=== PATIENT | male | born 1975 | race Two or more races ===

== ENCOUNTER 2019-06-24 14:36 | Inpatient (IN) | payer SELFPAY ==
[~2019-06-24] VITALS: Ht 170.2 cm; Wt 108.4 kg
[2019-06-24] MEDS ORDERED: SODIUM CHLORIDE 0.9% 1,000 ML IVB ONE (14:55)
[2019-06-24 15:17] LABS: Basophils # (auto) 0.1 10 ^3/uL (0-0.2); Basophils % (auto) 0.8 % (0.0-2.0); Eosinophils # (auto) 0.4 10 ^3/uL (0-0.8); Eosinophils % (auto) 2.8 % (0.0-7.0); Hematocrit 47.9 % (41.0-53.0); Hemoglobin 15.5 g/dL (13.5-17.5); Lymphocytes # (auto) 2.8 10 ^3/uL (0.4-5.4); Lymphocytes % (auto) 20.5 % (10.0-50.0); Mean Corpuscular Hgb Conc. 32.3 g/dL (32.0-36.0); Mean Corpuscular Volume 89.8 fL (80.0-100.0); Monocytes # (auto) 1.3 10 ^3/uL (0-1.3); Monocytes % (auto) 9.4 % (0.0-12.0); Neutrophils # (auto) 9.3 10 ^3/uL (1.6-8.6); Neutrophils % (auto) 66.5 % (37.0-80.0); Nucleated Red Blood Cells % 0.2 %; Platelet Count (auto) 323 10^3/uL (140-450); Red Blood Cells 5.33 10^6/uL (4.5-5.90); Red Cell Distribution Width 13.7 % (11.8-14.3); White Blood Cell 13.9 10^3/uL (4.4-10.8)
[2019-06-24 15:36] LABS: Urine Bacteria NONE SEEN /hpf (None Seen); Urine Blood Negative /uL (Negative); Urine Hyaline Cast FEW /lpf (0 - 2); Urine Mucus FEW (None Seen); Urine Specific Gravity 1.014 (1.001-1.035); Urine WBC 1 /hpf (0 - 3)
[2019-06-24 15:37] LABS: Albumin 3.5 g/dL (3.4-5.0); Anion Gap 6 (5-15); Blood Urea Nitrogen 13 mg/dL (7-18); Calcium 8.4 mg/dL (8.5-10.1); Carbon Dioxide 25 mmol/L (21-32); Chloride 104 mmol/L (98-107); Glucose 201 mg/dL (74-106); Potassium 3.7 mmol/L (3.5-5.1); Salicylate 2.1 mg/dL (2.8-20.0); Sodium 135 mmol/L (136-145)
[2019-06-24 15:40] LABS: Alcohol, Urine < 3.0 mg/dL (0-5); Amphetamine Screen, Urine NEGATIVE (NEGATIVE); Barbiturate Scree,Urine NEGATIVE (NEGATIVE); Benzodiazephine Screen, Urine NEGATIVE (NEGATIVE); Cannabinoid Screen, Urine NEGATIVE (NEGATIVE); Cocaine Screen, Urine NEGATIVE (NEGATIVE); Opiate Scree,Urine POSITIVE (NEGATIVE); Phencyclidine Screen, Urine NEGATIVE (NEGATIVE)
[2019-06-24 15:40] LABS: Alanine Aminotransferase 45 U/L (16-61); Aspartate Aminotransferase 41 U/L (15-37); Blood Alcohol < 3.0 mg/dL (0-5); GFR African American 89 mL/min; GFR Non-African American 74 mL/min
[2019-06-24 15:41] LABS: Acetaminophen < 2.0 ug/mL (10-30)
[2019-06-24 15:42] LABS: Alkaline Phosphatase 61 U/L (45-117); Bilirubin, Total 0.7 mg/dL (0.2-1.0); Total Protein 7.9 g/dL (6.4-8.2)
[2019-06-24 16:20] LABS: BUN/Creatinine Ratio 11.3
[2019-06-24] MEDS ORDERED: POTASSIUM CHL 20 Meq TABLET PO ONE (16:45)
[2019-06-24] MEDS ORDERED: MAGNESIUM SULFATE 1GM/100ML 100 ML IV ONE (16:45)
[2019-06-24] MEDS ORDERED: FOLIC ACID 1 MG TAB PO ONE (16:45)
[2019-06-24] MEDS ORDERED: CLINDAMYCIN 300MG IV 50 ML IV ONE (16:45)
[2019-06-24] MEDS ORDERED: LORazepam 0.5 MG TAB PO PRN (16:45)
[2019-06-24] MEDS ORDERED: CALCIUM GLUC 4.65meq/50ml D5AE 50 ML IV ONE (16:45)
[2019-06-24] MEDS ORDERED: DOCUSATE SOD 100 MG CAP PO PRN (16:45)
[2019-06-24] MEDS ORDERED: MORPHINE SULFATE 4 MG/ML SYR/VIAL IV PRN (16:45)
[2019-06-24] MEDS ORDERED: MORPHINE SULF INJ 2 MG/ML SYRINGE 1ML IV PRN (16:45)
[2019-06-24] MEDS ORDERED: METOCLOPRAMIDE HCL 5MG/ml INJ 2ml VIAL IV PRN (16:45)
[2019-06-24] MEDS ORDERED: ALUM & MAG HYDROX-SIMETH LIQ(MAALOX) 30 ML PO PRN (16:45)
[2019-06-24] MEDS ORDERED: THIAMINE HCL 100 MG TAB PO ONE (16:45)
[2019-06-24] MEDS ORDERED: FUROSEMIDE 100 MG/10ML VIAL IV ONE (16:45)
[2019-06-24] MEDS ORDERED: cefTRIAXone 1GM/50ML D5W 50 ML IV ONE (16:45)
[2019-06-24] MEDS ORDERED: MULTIPLE VITAMIN TAB PO ONE (16:45)
[2019-06-24] MEDS ORDERED: NITROGLYCERIN 0.4 MG SL TAB SL PRN (16:45)
[2019-06-24] MEDS ORDERED: HYDROcodone-ACET 5/325MG TAB PO PRN (16:45)
[2019-06-24 16:56] LABS: Cholesterol 115 mg/dL (< 200)
[2019-06-24 16:59] LABS: HDL Cholesterol 43 mg/dL (40-59); LDL Cholesterol 59 mg/dL (< 100); Triglycerides 90 mg/dL (< 150)
[2019-06-24] MEDS ORDERED: NALOXONE HCL 1MG/ML 2ML SYRINGE IV ONE (17:15)
[2019-06-24] MEDS: D5W/SOD CHL 0.45% 1,000 ML IV SCH (17:37)
[2019-06-24] MEDS: FUROSEMIDE 100 MG/10ML VIAL IV SCH (17:49)
[2019-06-24] MEDS ORDERED: METOPROLOL TARTRATE 1MG/1ML-5ML VIAL IV ONE ×2 (19:30→19:36)
[2019-06-24 21:59] VITALS: BP 127/93
[2019-06-24] MEDS: CLINDAMYCIN 300MG IV 50 ML IV SCH (22:54)
[2019-06-24] MEDS: METOPROLOL TARTRATE 1MG/1ML-5ML VIAL IV PRN (22:55)
[2019-06-25 00:27] VITALS: BP 127/93
[2019-06-25 05:00] VITALS: BP 144/88
[2019-06-25] MEDS: METOPROLOL TARTRATE 1MG/1ML-5ML VIAL IV PRN (05:15)
[2019-06-25] MEDS: D5W/SOD CHL 0.45% 1,000 ML IV SCH (06:11)
[2019-06-25] MEDS: CLINDAMYCIN 300MG IV 50 ML IV SCH (06:11)
[2019-06-25] MEDS: FUROSEMIDE 100 MG/10ML VIAL IV SCH (06:11)
[2019-06-25 06:36] LABS: Basophils # (auto) 0.1 10 ^3/uL (0-0.2); Basophils % (auto) 0.3 % (0.0-2.0); Eosinophils # (auto) 0 10 ^3/uL (0-0.8); Eosinophils % (auto) 0.2 % (0.0-7.0); Hematocrit 49.3 % (41.0-53.0); Hemoglobin 16.1 g/dL (13.5-17.5); Lymphocytes % (auto) 10.2 % (10.0-50.0); Mean Corpuscular Hemoglobin 29.6 pg (28.0-32.0); Mean Corpuscular Hgb Conc. 32.6 g/dL (32.0-36.0); Mean Corpuscular Volume 90.7 fL (80.0-100.0); Monocytes # (auto) 2.1 10 ^3/uL (0-1.3); Monocytes % (auto) 10.8 % (0.0-12.0); Neutrophils # (auto) 15.6 10 ^3/uL (1.6-8.6); Neutrophils % (auto) 78.5 % (37.0-80.0); Platelet Count (auto) 343 10^3/uL (140-450); Red Blood Cells 5.43 10^6/uL (4.5-5.90); White Blood Cell 19.9 10^3/uL (4.4-10.8)
[2019-06-25 06:44] LABS: INR 1.05 (0.9-1.15); Partial Thromboplastin Time 24.8 sec (23.64-32.05)
[2019-06-25 06:54] LABS: Potassium 4.9 mmol/L (3.5-5.1)
[2019-06-25 07:00] LABS: Albumin 3.8 g/dL (3.4-5.0); BUN/Creatinine Ratio 11.6; Calcium 9.1 mg/dL (8.5-10.1); Magnesium 2.8 mg/dL (1.6-2.6); Phosphorus 5.1 mg/dL (2.5-4.90); Total Protein 8.6 g/dL (6.4-8.2)
[2019-06-25 09:00] VITALS: BP 154/71
[2019-06-25] MEDS ORDERED: cefTRIAXone 1GM/50ML D5W 50 ML IV SCH (09:00)
[2019-06-25] MEDS ORDERED: MULTIPLE VITAMIN TAB PO SCH (10:00)
[2019-06-25] MEDS ORDERED: THIAMINE HCL 100 MG TAB PO SCH (10:00)
[2019-06-25] MEDS ORDERED: POTASSIUM CHL 20 Meq TABLET PO SCH (10:00)
[2019-06-25] MEDS ORDERED: FOLIC ACID 1 MG TAB PO SCH (10:00)
[2019-06-25] MEDS ORDERED: ENOXAPARIN SOD 40 MG/0.4 ML SYRINGE SC SCH (10:00)
== END 2019-06-25 08:59 | disposition left against medical advice (07) | DRG 917 ==
LOC: EDBD 14:36 → ER 14:36 → TELE 14:37 → TELE-WESTW 19:50
PROVIDERS: ADMIT Hospitalist; ATTEND Internal Medicine
DX: T40.2X1A Poisoning by other opioids, accidental (unintentional), initial encounter (principal); G93.41 Metabolic encephalopathy; J69.0 Pneumonitis due to inhalation of food and vomit; E44.1 Mild protein-calorie malnutrition; Y92.89 Other specified places as the place of occurrence of the external cause; E83.51 Hypocalcemia; E66.9 Obesity, unspecified; E86.0 Dehydration; F17.210 Nicotine dependence, cigarettes, uncomplicated; Z90.49 Acquired absence of other specified parts of digestive tract; R73.9 Hyperglycemia, unspecified
CPT/HCPCS: 36415; 70450; 71045; 74176; 80053; 80061; 80307; 80320; 80329; 81001; 83036; 83735; 84100; 84484; 85025; 85610; 85730; 87040; 99291; G0378; J0610; J0696; J3490